=== PATIENT | male | born 1985 | race Two or more races ===

== ENCOUNTER → 2016-05-04 | Outpatient (CLI) | payer OTHER ==
--- NOTE | 2016-05-04 15:25 | REP ---
LEFT KNEE: Six views left knee performed. I see no acute fracture or dislocation. Minimal medial joint space narrowing is seen. There appears to be a small joint effusion. IMPRESSION: No acute fracture or dislocation. Small joint effusion. Further evaluation may be made with MRI if clinically indicated. Signed by Paulo Ortega MD 05/05/2016 09:48 A
== END ==
LOC: M LRY 13:48
PROVIDERS: ATTEND Physician Assistant
DX: M25.562 Pain in left knee (principal); M25.462 Effusion, left knee

== ENCOUNTER → 2022-06-06 | Outpatient (CLI) | payer BC | LOC: M RAD 13:56 | PROVIDERS: ATTEND Physician Assistant | DX: J32.8 Other chronic sinusitis (principal); J34.2 Deviated nasal septum ==